=== PATIENT | male | born 1975 | race Caucasian/White ===

== ENCOUNTER 2021-01-19 10:23 | Emergency (ER) | payer OTHER ==
[2021-01-19 10:28] VITALS: BP 154/93; PULSE 69; TEMP 97.7; BMI 31.2
[2021-01-19] MEDS ORDERED: FLUORESCEIN NA 1 EA STRIP ONE (11:09)
[2021-01-19] MEDS ORDERED: TETRACAINE 0.5% OPHTH SOLN 2 ML BOTTLE ONE (11:09)
[2021-01-19] MEDS ORDERED: TETRACAINE 0.5% OPHTH SOLN 2 ML BOTTLE OD ONE (11:36)
[2021-01-19] MEDS ORDERED: IBUPROFEN 400 MG TABLET (FP) PO ONE ×2 (11:53→11:54)
[2021-01-19] MEDS ORDERED: DIPHTH,PERTUSS(ACELL),TET 0.5 ML DISP.SYRIN IM ONE ×2 (12:14→12:16)
== END 2021-01-19 12:19 | disposition home or self-care (01) ==
LOC: JERFT 10:23
PROC: 3E0234Z Introduction of Serum, Toxoid and Vaccine into Muscle, Percutaneous Approach (ICD-10-PCS; principal; 2021-01-19)
DX: S05.01XA Injury of conjunctiva and corneal abrasion without foreign body, right eye, initial encounter (principal); W26.8XXA Contact with other sharp object(s), not elsewhere classified, initial encounter
CPT/HCPCS: 90715; 99284-25

== ENCOUNTER 2021-08-15 13:22 | Emergency (ER) | payer BC, OTHER ==
[2021-08-15 13:33] VITALS: BP 126/81; PULSE 83; TEMP 97.8; BMI 48.0
[2021-08-15] MEDS ORDERED: BENZOCAINE 20% 57 GM BOTTLE TP ONE (18:12)
[2021-08-15] MEDS ORDERED: CLINDAMYCIN HCL 300 MG CAPSULE PO ONE (18:56)
[2021-08-15] MEDS ORDERED: CLINDAMYCIN HCL 150 MG CAPSULE (FP) ONE (19:21)
== END 2021-08-15 19:57 | disposition home or self-care (01) ==
LOC: JER 13:22
DX: T18.128A Food in esophagus causing other injury, initial encounter (principal)
CPT/HCPCS: 70360-TC-FY; 70490-TC; 71046-TC-FY; 71250-TC; 93005; 93010; 99284-25